=== PATIENT | female | born 1960 | race Caucasian/White ===

== ENCOUNTER → 2016-07-24 | Outpatient (CLI) | payer MEDICARE ==
[~2016-07-24] MED LIST: CYCL10TA2 PO; HYDR-2762 PO
[2016-07-24 15:18] LABS: BASO # 0.1 x10^3/uL (0.0-0.2); BASO % 1 % (0-3); EOS % 1 % (0-3); HEMATOCRIT 49.4 % (36.0-47.0); HEMOGLOBIN 16.7 g/dL (12.0-15.5); LYMPH # 2.6 x10^3/uL (1.0-4.8); LYMPH % 29 % (24-48); MEAN CORPUSCULAR HEMOGLOBIN 32 pg (25-35); MEAN CORPUSCULAR HGB CONC 34 g/dL (31-37); MEAN CORPUSCULAR VOLUME 94 fL (79-100); MONO % 8 % (0-9); NEUT % 60 % (31-73); PLATELET COUNT 222 x10^3/uL (140-400); RED BLOOD COUNT 5.25 x10^6/uL (3.50-5.40); RED CELL DISTRIBUTION WIDTH 13.1 % (11.5-14.5); WHITE BLOOD COUNT 8.8 x10^3/uL (4.0-11.0)
[2016-07-24 15:34] LABS: ALBUMIN 3.7 g/dL (3.4-5.0); ALBUMIN/GLOBULIN RATIO 0.9 (1.0-1.7); CALCIUM 9.1 mg/dL (8.5-10.1); CREATININE 0.6 mg/dL (0.6-1.0); POTASSIUM 3.8 mmol/L (3.5-5.1); TOTAL BILIRUBIN 0.5 mg/dL (0.2-1.0); TOTAL PROTEIN 7.9 g/dL (6.4-8.2)
== END | disposition home or self-care (01) ==
LOC: SURGPAT 14:20
PROVIDERS: ATTEND Neurological Surgery
DX: Z01.818 Encounter for other preprocedural examination (principal)
CPT/HCPCS: 36415; 80053; 85027; 87641

== ENCOUNTER → 2016-10-23 | Outpatient (CLI) | payer MEDICARE ==
[2016-08-01 10:41] VITALS: BP 110/66
[~2016-10-23] MED LIST changes: +DOCU100C28 PO
--- NOTE | 2016-10-23 12:52 | RAD ---
EXAM: Cervical spine 2 views. HISTORY: Cervical fusion. Increased pain. COMPARISON: 07/31/2016. FINDINGS: Instrumented anterior cervical discectomy and fusion changes are instrumented at C4-5 and C6-7. There is solid noninstrumented fusion at C5-6. There is a mild cervical levocurvature. The prevertebral soft tissues are mildly prominent at C6-7. No fractures are identified. Degenerative disc disease appears mild at C2-3. IMPRESSION: 1. C4-C7 instrumented anterior cervical discectomy and fusion as above. The prevertebral soft tissues are mildly prominent at C6-7. 2. Mild degenerative disc disease at C2-3.
== END | disposition home or self-care (01) ==
LOC: RAD 10:29
PROVIDERS: ATTEND Neurological Surgery
DX: M50.31 Other cervical disc degeneration, high cervical region (principal)
CPT/HCPCS: 72040